=== PATIENT | female | born 1965 | race Caucasian/White ===

== ENCOUNTER → 2022-03-02 | Outpatient (CLI) | payer OTHER ==
[2022-03-02 11:30] LABS: BASOPHILS ABSOLUTE AUTO 0.04 K/mm3 (0.00-0.23); BASOPHILS PERCENT AUTO 0 % (0-2); EOSINOPHILS ABSOLUTE AUTO 0.05 K/mm3 (0.00-0.68); EOSINOPHILS PERCENT AUTO 1 % (0-6); Hematocrit 43.9 % (33.0-51.0); Hemoglobin 14.7 g/dL (11.5-16.0); IMMATURE GRAN ABSOLUTE AUTO 0.03 K/mm3 (0.00-0.10); IMMATURE GRAN PERCENT AUTO 0 % (0-1); LYMPHOCYTES ABSOLUTE AUTO 1.66 K/mm3 (0.84-5.20); LYMPHOCYTES PERCENT AUTO 16 % (21-46); MONOCYTES ABSOLUTE AUTO 0.76 K/mm3 (0.16-1.47); MONOCYTES PERCENT AUTO 7 % (4-13); Mean Corpuscular HGB 31.3 pg (26.0-34.0); Mean Corpuscular HGB Conc 33.5 g/dL (31.5-36.5); Mean Corpuscular Volume 94 fL (80-100); Mean Platelet Volume 9.9 fL (9.1-12.4); NEUTROPHILS ABSOLUTE AUTO 7.93 K/mm3 (1.96-9.15); NEUTROPHILS PERCENT AUTO 76 % (41-73); Platelet Count 289 K/mm3 (150-400); RDW Coefficient Variation 13.3 % (11.7-14.2); RDW Standard Deviation 45.7 fL (35.1-46.3); Red Blood Cell Count 4.69 M/mm3 (3.80-5.20); White Blood Cell Count 10.47 K/mm3 (4.00-11.30)
[2022-03-02 11:40] LABS: Albumin, Blood 4.3 g/dL (3.4-5.0); Bilirubin, Total 0.6 mg/dL (0.1-1.0); Bun/Creatinine Ratio 12.3 (12.0-20.0); Calcium, Blood 9.8 mg/dL (8.5-10.1); Creatinine, Blood 1.63 mg/dL (0.40-1.00); Globulin, Blood 4.1 g/dL (2.2-4.0); Potassium, Blood 4.1 mmol/L (3.5-5.5); Total Protein, Blood 8.4 g/dL (6.4-8.2)
== END | disposition home or self-care (01) ==
LOC: LAB SHORT 11:22
PROVIDERS: Physician Assistant Surgical
DX: R10.32 Left lower quadrant pain (principal)
CPT/HCPCS: 80053; 83690; 85025

== ENCOUNTER → 2022-11-27 | Outpatient (CLI) | payer OTHER ==
[2022-11-27 11:29] LABS: BASOPHILS ABSOLUTE AUTO 0.05 K/mm3 (0.00-0.23); BASOPHILS PERCENT AUTO 1 % (0-2); EOSINOPHILS ABSOLUTE AUTO 0.14 K/mm3 (0.00-0.68); EOSINOPHILS PERCENT AUTO 2 % (0-6); Hematocrit 43.4 % (33.0-51.0); Hemoglobin 14.3 g/dL (11.5-16.0); IMMATURE GRAN ABSOLUTE AUTO 0.01 K/mm3 (0.00-0.10); IMMATURE GRAN PERCENT AUTO 0 % (0-1); LYMPHOCYTES ABSOLUTE AUTO 2.19 K/mm3 (0.84-5.20); LYMPHOCYTES PERCENT AUTO 36 % (21-46); MONOCYTES PERCENT AUTO 7 % (4-13); Mean Corpuscular HGB 30.9 pg (26.0-34.0); Mean Corpuscular HGB Conc 32.9 g/dL (31.5-36.5); Mean Corpuscular Volume 94 fL (80-100); Mean Platelet Volume 10.6 fL (9.1-12.4); NEUTROPHILS ABSOLUTE AUTO 3.38 K/mm3 (1.96-9.15); NEUTROPHILS PERCENT AUTO 55 % (41-73); Platelet Count 263 K/mm3 (150-400); RDW Coefficient Variation 13.2 % (11.7-14.2); RDW Standard Deviation 45.1 fL (35.1-46.3); Red Blood Cell Count 4.63 M/mm3 (3.80-5.20); White Blood Cell Count 6.17 K/mm3 (4.00-11.30)
[2022-11-27 11:51] LABS: Albumin, Blood 4.3 g/dL (3.4-5.0); Albumin/Globulin Ratio 1.1 (0.8-1.8); Bilirubin, Total 0.3 mg/dL (0.1-1.0); Calcium, Blood 9.6 mg/dL (8.5-10.1); Globulin, Blood 3.8 g/dL (2.2-4.0); Thyroid Stimulating Hormone 2.846 uIU/mL (0.360-4.800); Total Protein, Blood 8.1 g/dL (6.4-8.2)
== END ==
LOC: LAB 11:22 → LAB SHORT 11:22
PROVIDERS: Chiropractor
DX: R07.9 Chest pain, unspecified (principal); R53.83 Other fatigue
CPT/HCPCS: 80053; 84443; 84484; 85025; 85379

== ENCOUNTER 2023-04-01 09:39 | Day surgery (SDC) | payer OTHER ==
[2023-04-01] VITALS (8 sets, daily range): BP systolic 105–143; BP diastolic 55–89
[~2023-04-01] VITALS: Ht 172.7 cm; Wt 95.0 kg
[~2023-04-01 09:39] MED LIST: ALPR.5 PO; ESCI20 PO; METHYLCELLULOSE PO; ROSU5 PO
[2023-04-01] MEDS ORDERED: CeFAZolin Sodium 2,000 MG in NS 50 ML IV SCH (10:50)
[2023-04-01] MEDS ORDERED: Lactated Ringer's 1,000 ML IV SCH (10:50)
--- NOTE | 2023-04-01 11:15 | NUR ---
Ambulatory in Day Surgery History, Chart, Medications and Allergies reviewed before start of procedure.Pre-Op teaching done. Pt verbalizes understanding. Patient States Post-Procedure ride home has been arranged. Patient confirms NPO status and agrees with scheduled surgery.
[2023-04-01] MEDS ORDERED: Bupivacaine 0.5% HCl 5 MG/ML 30MLVIAL ONE (11:43)
[2023-04-01] MEDS ORDERED: FentaNYL Citrate 50 MCG/ML 2 ML Injection ONE (11:57)
[2023-04-01] MEDS ORDERED: Ketorolac Tromethamine 30mg Vial ONE (11:57)
[2023-04-01] MEDS ORDERED: Dexamethasone Sod Phos 10 MG/ML 1ML VIAL ONE (11:57)
[2023-04-01] MEDS ORDERED: Ondansetron HCl 2 MG / ML 2ML Vial ONE (11:57)
[2023-04-01] MEDS ORDERED: propofoL 20 ML IV ONE (11:57)
[2023-04-01] MEDS ORDERED: Lidocaine HCl 1% 30 ML SDV ONE (12:00)
--- NOTE | 2023-04-02 10:01 | NUR ---
04/02/23 1001 Beti Graff VERIFICATIONS: EDIT CHART.
== END 2023-04-01 23:48 | disposition home or self-care (01) ==
LOC: ORSCMMR 09:39 → ORD 10:30 → ORSCMMR 10:30
PROVIDERS: Surgery
PROC: 0JH63WZ Insertion of Totally Implantable Vascular Access Device into Chest Subcutaneous Tissue and Fascia, Percutaneous Approach (ICD-10-PCS; principal; 2023-04-01 10:30)
PROC: B543ZZA Ultrasonography of Right Jugular Veins, Guidance (ICD-10-PCS; principal; 2023-04-01 10:30)
PROC: 05HM33Z Insertion of Infusion Device into Right Internal Jugular Vein, Percutaneous Approach (ICD-10-PCS; principal; 2023-04-01 10:30)
DX: C50.111 Malignant neoplasm of central portion of right female breast (principal); F17.290 Nicotine dependence, other tobacco product, uncomplicated
CPT/HCPCS: 77001; C1788; J0690; J1100; J1642; J1885; J2405; J2704; J3010; J7120

== ENCOUNTER 2023-05-15 08:37 | Day surgery (SDC) | payer OTHER | END 2023-05-29 23:31 | disposition home or self-care (01) | LOC: MOI MAM 08:37 | DX: N60.92 Unspecified benign mammary dysplasia of left breast (principal); R92.0 Mammographic microcalcification found on diagnostic imaging of breast | CPT/HCPCS: 19081; 88305; A4648 ==

== ENCOUNTER 2023-05-31 03:59 | Emergency (ER) | payer OTHER ==
[~2023-05-31] VITALS: Ht 172.7 cm; Wt 93.0 kg
[2023-05-31 04:56] LABS: BASOPHILS ABSOLUTE AUTO 0.02 K/mm3 (0.00-0.23); BASOPHILS PERCENT AUTO 1 % (0-2); EOSINOPHILS ABSOLUTE AUTO 0.01 K/mm3 (0.00-0.68); EOSINOPHILS PERCENT AUTO 1 % (0-6); Hematocrit 37.6 % (33.0-51.0); Hemoglobin 12.6 g/dL (11.5-16.0); IMMATURE GRAN ABSOLUTE AUTO 0.01 K/mm3 (0.00-0.10); IMMATURE GRAN PERCENT AUTO 1 % (0-1); LYMPHOCYTES ABSOLUTE AUTO 1.39 K/mm3 (0.84-5.20); LYMPHOCYTES PERCENT AUTO 64 % (21-46); MONOCYTES ABSOLUTE AUTO 0.61 K/mm3 (0.16-1.47); MONOCYTES PERCENT AUTO 28 % (4-13); Mean Corpuscular HGB 30.6 pg (26.0-34.0); Mean Corpuscular HGB Conc 33.5 g/dL (31.5-36.5); Mean Corpuscular Volume 91 fL (80-100); Mean Platelet Volume 9.8 fL (9.1-12.4); NEUTROPHILS ABSOLUTE AUTO 0.14 K/mm3 (1.96-9.15); NEUTROPHILS PERCENT AUTO 6 % (41-73); Platelet Count 214 K/mm3 (150-400); RDW Coefficient Variation 14.1 % (11.7-14.2); RDW Standard Deviation 46.6 fL (35.1-46.3); Red Blood Cell Count 4.12 M/mm3 (3.80-5.20); White Blood Cell Count 2.18 K/mm3 (4.00-11.30)
[2023-05-31 05:17] LABS: Albumin, Blood 3.5 g/dL (3.4-5.0); Bilirubin, Total 0.4 mg/dL (0.1-1.0); Bun/Creatinine Ratio 14.3 (12.0-20.0); Calcium, Blood 9.7 mg/dL (8.5-10.1); Creatinine, Blood 0.84 mg/dL (0.40-1.00); Globulin, Blood 3.4 g/dL (2.2-4.0); Potassium, Blood 3.9 mmol/L (3.5-5.5); Total Protein, Blood 6.9 g/dL (6.4-8.2)
[2023-05-31] MEDS ORDERED: ALPRAZOLAM0.5 M1 PO (05:50)
[2023-05-31] MEDS ORDERED: HYDROmorphone HCl/Pf 1MG SYR IV ONE ×2 (05:50→07:40)
[2023-05-31] MEDS ORDERED: [UNRECOGNIZED DRUG - CODE] PO (05:50)
[2023-05-31] MEDS ORDERED: TRAZ50 PO (05:51)
[2023-05-31] MEDS ORDERED: CefTRIAXone Sodium 1,000 MG in NS 50 ML IV ONE (07:20)
[2023-05-31] MEDS ORDERED: NS 1,000 ML IV ONE (07:44)
[2023-05-31] MEDS ORDERED: Dose Adjust by Pharmacy XX STA (07:47)
[2023-05-31] MEDS ORDERED: Heparin Sodium,Porcine/0.5 NS 500 ML IV SCH (07:50)
[2023-05-31 08:11] LABS: Anti-Xa UFH, PHA Monitoring <0.10 IU/mL; International Normalized Ratio 0.93; Prothrombin Time Results 9.8 Sec (9.7-11.5)
[2023-05-31] MEDS ORDERED: Ondansetron HCl 2 MG / ML 2ML Vial IV ONE (09:20)
[2023-05-31 11:51] VITALS: BP 118/65
== END 2023-05-31 11:57 | disposition home or self-care (01) ==
LOC: ER 03:59
PROVIDERS: Emergency Medicine
DX: I26.99 Other pulmonary embolism without acute cor pulmonale (principal); J18.9 Pneumonia, unspecified organism; D72.818 Other decreased white blood cell count; C50.919 Malignant neoplasm of unspecified site of unspecified female breast; Z79.899 Other long term (current) drug therapy
CPT/HCPCS: 36415; 71046; 71260; 80053; 83605; 84484; 85025; 85520; 85610; 87040; 93005; 93010; 96365-59; 96366-59; 96367-59; 96368; 96375-59; 96376-59; 99284-25; J0696; J1170; J1644; J2405; J3370; J7030; J7050; Q9967

== ENCOUNTER 2023-08-23 08:11 | Day surgery (SDC) | payer OTHER ==
[2023-08-23] VITALS (10 sets, daily range): BP systolic 119–132; BP diastolic 61–82
[~2023-08-23 08:11] MED LIST changes: +ALPRAZOLAM0.5 M1 PO; +TRAZ50 PO; +XARELTO20 MG PO; +[UNRECOGNIZED DRUG - CODE] PO
[2023-08-23] MEDS ORDERED: Lactated Ringer's 1,000 ML IV SCH (11:40)
[2023-08-23] MEDS ORDERED: CeFAZolin Sodium 2,000 MG in NS 100 ML IV SCH (11:40)
[2023-08-23] MEDS ORDERED: Bupivacaine 0.5% HCl 5 MG/ML 30MLVIAL ONE (11:48)
[2023-08-23] MEDS ORDERED: DiphenhydrAMINE HCl 50 MG/ML 1ML Vial ONE (11:56)
[2023-08-23] MEDS ORDERED: FentaNYL Citrate 50 MCG/ML 2 ML Injection ONE (11:56)
[2023-08-23] MEDS ORDERED: Ketorolac Tromethamine 30mg Vial ONE (11:56)
[2023-08-23] MEDS ORDERED: Dexamethasone Sod Phos 10 MG/ML 1ML VIAL ONE (11:56)
[2023-08-23] MEDS ORDERED: propofoL 20 ML IV ONE (11:56)
[2023-08-23] MEDS ORDERED: Ondansetron HCl 2 MG / ML 2ML Vial ONE (11:56)
[2023-08-23] MEDS ORDERED: Lidocaine HCl 2% 20 ML MDV ONE (11:56)
[2023-08-23] MEDS ORDERED: Methylene Blue 1% 100 MG/10 ML VIAL ONE (12:10)
[2023-08-23] MEDS ORDERED: HYDROmorphone HCl/Pf 1MG SYR ONE (13:06)
== END 2023-08-23 15:59 | disposition home or self-care (01) ==
LOC: ORSCMMR 08:11 → NM 08:11 → ORSCMMR 08:12 → NM 09:30
PROVIDERS: Surgery
PROC: 0HBT0ZZ Excision of Right Breast, Open Approach (ICD-10-PCS; principal; 2023-08-23 10:45)
PROC: 07B50ZX Excision of Right Axillary Lymphatic, Open Approach, Diagnostic (ICD-10-PCS; principal; 2023-08-23 10:45)
PROC: 0HBU0ZX Excision of Left Breast, Open Approach, Diagnostic (ICD-10-PCS; principal; 2023-08-23 10:45)
DX: C50.111 Malignant neoplasm of central portion of right female breast (principal); Z17.0 Estrogen receptor positive status [ER+]; F41.1 Generalized anxiety disorder; E78.5 Hyperlipidemia, unspecified; L40.50 Arthropathic psoriasis, unspecified; Z86.711 Personal history of pulmonary embolism; Z79.01 Long term (current) use of anticoagulants; Z79.899 Other long term (current) drug therapy; F17.290 Nicotine dependence, other tobacco product, uncomplicated
CPT/HCPCS: 38792; 76098; 88307; 88341; 88342; 88360; A9520; J0690; J1100; J1170; J1200; J1885; J2405; J2704; J3010; Q9968